=== PATIENT | male | born 1960 | race Caucasian/White ===

== ENCOUNTER 2023-09-11 12:07 | Emergency (ER) | payer OTHER ==
[~2023-09-11] VITALS: Ht 182.9 cm; Wt 105.2 kg
[2023-09-11] MEDS ORDERED: TDAP [DIPH/PERTUSSIS/TET] 0.5 ML VIAL IM ONE (12:53)
[2023-09-11] MEDS: TDAP [DIPH/PERTUSSIS/TET] 0.5 ML VIAL IM ONE (13:04)
[2023-09-11] MEDS ORDERED: AMOX-430 PO (13:05)
[2023-09-11 13:13] VITALS: BP 125/84; TEMP 98.2; O2SAT 97
== END 2023-09-11 13:14 | disposition home or self-care (01) ==
LOC: ER 12:07
DX: S61.511A Laceration without foreign body of right wrist, initial encounter (principal); S51.811A Laceration without foreign body of right forearm, initial encounter; E78.00 Pure hypercholesterolemia, unspecified; W54.0XXA Bitten by dog, initial encounter; Y93.89 Activity, other specified; Y92.89 Other specified places as the place of occurrence of the external cause; Y99.8 Other external cause status
CPT/HCPCS: 12004; 90471; 90715; 99283; A6403

== ENCOUNTER → 2023-09-15 | Emergency (ER) | payer OTHER ==
[~2023-09-15] VITALS: Ht 182.9 cm; Wt 104.3 kg
[~2023-09-15] MED LIST: AMOX-430 PO
[2023-09-15 13:32] VITALS: BP 134/78; TEMP 98.6; O2SAT 96
== END | disposition home or self-care (01) ==
LOC: ER 12:37
DX: S61.431D Puncture wound without foreign body of right hand, subsequent encounter (principal); E78.00 Pure hypercholesterolemia, unspecified; Z79.899 Other long term (current) drug therapy; W54.0XXD Bitten by dog, subsequent encounter

== ENCOUNTER 2023-09-30 12:14 | Emergency (ER) | payer OTHER ==
[~2023-09-30] VITALS: Ht 182.9 cm; Wt 91.2 kg
[2023-09-30] MEDS ORDERED: SULF1TAB48 PO (13:16)
[2023-09-30] MEDS ORDERED: CEPH500C2 PO (13:16)
[2023-09-30 13:25] VITALS: BP 126/81; TEMP 97.9; O2SAT 100
[2023-09-30] MEDS ORDERED: BACI/NEOM/POLY B OINT PKT 1 UDPKT PACKET TP ONE (13:30)
== END 2023-09-30 13:26 | disposition home or self-care (01) ==
LOC: ER 12:17
DX: S51.851D Open bite of right forearm, subsequent encounter (principal); E78.5 Hyperlipidemia, unspecified; W54.0XXD Bitten by dog, subsequent encounter

== ENCOUNTER 2023-10-09 18:21 | Emergency (ER) | payer OTHER ==
[~2023-10-09] VITALS: Ht 182.9 cm; Wt 101.6 kg
[~2023-10-09 18:21] MED LIST changes: +CEPH500C2 PO; +SULF1TAB48 PO
[2023-10-09 18:28] VITALS: BP 128/77; TEMP 98; O2SAT 95
== END 2023-10-09 19:14 | disposition home or self-care (01) ==
LOC: ER 18:21
DX: S51.832D Puncture wound without foreign body of left forearm, subsequent encounter (principal); Z48.00 Encounter for change or removal of nonsurgical wound dressing; E78.00 Pure hypercholesterolemia, unspecified; W54.0XXD Bitten by dog, subsequent encounter